=== PATIENT | female | born 1945 | race Caucasian/White ===

== ENCOUNTER 2018-03-08 05:51 | Day surgery (SDC) | payer MEDICARE, BC ==
--- NOTE | 2018-03-07 18:38 | HP ---
HISTORY OF PRESENT ILLNESS: Ms. Montanez is a very pleasant 72-year-old woman presenting for evaluation of left-sided foot drop and L5 pains with an MRI revealing a large calcified synovial cyst in the fo ramen on the left at L5 compressing the exiting L5 nerve root. This has been going on now for the st month or so and appears to be slowly getting worse. She has not treated this with any significant intervention and does have obvious clinical weakness with foot drop on the left. Her gait is also s omewhat affected as she is having a somewhat high step with the left lower extremity to avoid catchin g her toe on the swing through. She also reports mild numbness over the same distribution. PAST MEDICAL HISTORY: Significant for allergies, glaucoma, hepatitis, hypothyroidism, and unspecifie d intestinal disease. PAST SURGICAL HISTORY: Breast cystectomy, hysterectomy, and resection. ALLERGIES: No known drug allergies. CURRENT MEDICATIONS: sustained release, DHEA, pregnenolone, testosterone, progesterone. PHYSICAL EXAMINATION: The patient is alert and oriented x3. 3/5 weakness in the dorsiflexion of the left foot, otherwise normal lower extremity motor exam. ASSESSMENT: Lumbar radiculopathy and foot drop. PLAN: Dr. Washington met with the patient, reviewed imaging, and advocated for a left L5 facetectomy. He explained to the patient the risks, benefits, and alternatives of the procedure. The patient expres sed understanding and would like to move forward with surgery as discussed. I do believe the patient is mentally competent and capable of making medical decisions for herself and we will move forward w [facility] surgery as planned. Sujit Hsu PA-C dictating for Dr. Washington.
[2018-03-08] MEDS ORDERED: Bupivacaine HCl 0.5%/Epinephrine 1:200,000/PF 30 ml Vial ONE (06:16)
[2018-03-08] MEDS ORDERED: Thrombin 5000 UNITS/5 ML VIAL ONE (06:16)
[2018-03-08] MEDS ORDERED: Scopolamine 1.5 mg/72 hour Patch ONE (06:32)
[2018-03-08] MEDS ORDERED: Famotidine/PF 20 mg/2ml Vial ONE (06:52)
[2018-03-08] MEDS ORDERED: Fentanyl 100 MCG/2 ML VIAL ONE ×4 (06:54→09:01)
[2018-03-08] MEDS ORDERED: HYDROcodone/Acetaminophen 5/325 mg Tablet ONE (10:10)
--- NOTE | 2018-03-08 13:06 | OP ---
DATE OF PROCEDURE: 03/08/2018 SURGEON: Cresencio Washington M.D. CROWD CONTROLLER: Sujit Hsu PA-C. INDICATION: Pain. DIAGNOSES: Left L5 radiculopathy, left foot drop, left L5 lateral recess and foraminal synovial cyst . ANESTHESIA: General. TECHNIQUE: The patient was brought into the operating room and placed on general anesthesia. She wa s flipped from a supine to a prone position on the operating room table. A linear incision was plann ed over the L5 segment. After prepping and draping and after an appropriate operative pause, the inc ision was created. The soft tissues were swept left of midline. A self-retaining retractor was plac ed in the wound for optimal exposure. After confirming the appropriate level with C-arm fluoroscopy, a high-speed cutting drill bit was used to remove most of the facet joint at L5 on the left side. A large synovial cyst was identified in the lateral recess extending into the foramen. This was adher ent to the L5 nerve root and the location of the patient's symptoms. The synovial cyst content s were completely removed. The synovial cyst was disconnected from the facet joint. There is a smal l portion of the wall of the synovial cyst adherent to the L5 nerve root at the takeoff of the thecal sac, which was left behind, but not compressive. Nerve root was identified and found to be rather i nflamed and erythematous. After decompressing the L5 nerve root, the wound was irrigated. Hemostasi s was maintained throughout. The wound was then closed in anatomic layers and a pressure dressing wa s applied. There were no known procedural complications.
== END 2018-03-08 11:00 | disposition home or self-care (01) ==
LOC: SDC 05:51
PROVIDERS: ATTEND Neurological Surgery
PROC: 01NB0ZZ Release Lumbar Nerve, Open Approach (ICD-10-PCS; principal; 2018-03-08)
DX: M54.16 Radiculopathy, lumbar region (principal); M71.38 Other bursal cyst, other site; M21.372 Foot drop, left foot; E03.9 Hypothyroidism, unspecified; K63.9 Disease of intestine, unspecified; Z79.899 Other long term (current) drug therapy; Z88.0 Allergy status to penicillin; Z88.8 Allergy status to other drugs, medicaments and biological substances
CPT/HCPCS: 76001; 96374; J0131; J0670; J3010; J3370; S0028